=== PATIENT | male | born 1965 | race Caucasian/White ===

== ENCOUNTER → 2018-02-09 | Outpatient (CLI) | payer OTHER ==
--- NOTE | 2018-02-09 10:38 | DIAGNOSTIC IMAGING REPORT ---
SCROTAL ULTRASOUND CLINICAL HISTORY: RIGHT TESTICULAR PAIN COMPARISON STUDY: None. TECHNIQUE: Grayscale and color and duplex Doppler sonography of the scrotum was performed. FINDINGS: The right testis measures 4.5 x 2.1 x 2.7 cm the left measures 4.3 x 2 x 3.1 cm. Color flow within each testis is symmetric. There is no testicular mass. There is no evidence for epididymitis. There is an 8 mm right epididymal cyst. A small right hydroceles present. A left-sided scrotalith is noted. IMPRESSION: 1. Normal sonographic appearance of the testes. 2. No evidence for epididymitis. Electronically signed by: Justin Mejia M.D. 02/09/2018 10:37 AM Dictated Date/Time: 02/09/2018 10:36 AM
== END | disposition home or self-care (01) ==
LOC: C.ULTRBC 10:08
PROVIDERS: ATTEND Family Medicine
DX: N50.811 Right testicular pain (principal)